=== PATIENT | female | born 1955 | race Caucasian/White ===

== ENCOUNTER 2021-04-07 10:35 | Emergency (ER) | payer MEDICARE, BC, SELFPAY ==
--- NOTE | ~2021-04-07 | XR_ITS ---
EXAMINATION: [id number] INDICATION: Right chest pain, initial encounter TECHNIQUE: A frontal view of the chest and 3 views of the right ribs were obtained. COMPARISON: None. FINDINGS: There are acute, traumatic, displaced fractures of the right fifth through eighth ribs. The re are segmental fractures of the fifth and seventh ribs. The lungs are free of acute opacities. Ther e is no pleural effusion or pneumothorax. The cardiomediastinal silhouette is normal. IMPRESSION: 1. Acute fractures of the right fifth through eighth ribs with segmental fractures of the fifth and s eventh ribs. Reviewed, dictated and finalized at location A. IMPRESSION: 1. Acute fractures of the right fifth through eighth ribs with segmental fractu res of the fifth and seventh ribs.
[2021-04-07 10:45] VITALS: BP 172/82; PULSE 83; RESP 24; TEMP 36.8; O2SAT 95
--- NOTE | 2021-04-07 11:31 | ED.CHESTPAIN ---
HPI - Chest Pain General Chief Complaint: Chest Pain Stated Complaint: injured ribs Source: patient and RN notes reviewed Limitations: no limitations History of Present Illness HPI narrative: The vaccinated patient, who is a smoker, presents with right rib pain. Patient states she slipped and fell from a standing position striking her right ribs on home furnishings a couple days ago. She complains of mild to moderate pain that is worse with breathing or movement, better with rest or tramadol. Patient states she has had previous pneumothorax and hospital admission for pneumonia; she also reports she had steroids years ago for her COPD. No fever, sputum changes, increased cough, left/precordial chest pains, bleeding, increase SOB. Screening chest x-ray remarkable for multiple rib fractures; patient advised to use her updraft, previous inspiratory spirometer . Told she will be given pain meds and antibiotics; also advised to see PMD and go to hospital if not improved Related Data Home Medications Medication Instructions Recorded Confirmed albuterol sulfate 2.5 mg CONTINUOUS NEBULIZATION PRN 04/07/21 04/07/21 PRN losartan 100 mg PO DAILY 04/07/21 04/07/21 paroxetine HCl 20 mg PO DAILY 04/07/21 04/07/21 Allergies Allergy/AdvReac Type Severity Reaction Status Date / Time No Known Allergies Allergy Verified 04/07/21 10:44 Review of Systems Review of Systems: General/Constitutional: No weight loss,fever Eyes: N0: Redness,discharge Ears/Nose/Throat: No: Epistaxis,ear discharge Respiratory: Denies: Hemoptysis Gastrointestinal: No Vomiting, Bleeding-rectal Skin: No Lumps, eruption Neurologic: No Focal Weakness,Sz Hematologic: Denies: Petechiae/Purpura Psychiatric: No: Suicida ideationl All Other Systems: Reviewed and Negative [facility] Comments At time of signature, agree with nursing past medical, surgical, social and family history. There is no relevant family history pertinent to the presenting complaint Exam Narrative: General Appearance: Lean/thin almost frail; no distress EYE: PERRLA, Conjunctiva clear Ears: External ear normal Nose: Normal nose Mouth/Throat: Normal appearing, Normal lips: Supple Skin: Warm, Dry; tender right, anterior-lateral ribs T5-9 Respiratory: Airway patent, No respiratory distress, increased AP diameter, decreased BS, rare wheezing GI: Nontender liver, soft Abdomen: Soft, Non-tender, No massess, Musculoskeletal: Full ROM Neurological: A&O x3, CN II-X intact Psychiatric: Normal mood, Normal affect Course Course Emergency Course: Films visualized, interpreted by radiologist, agree, ABnormal see report Vital Signs Vital signs: Vital Signs Temperature 98.3 F 04/07/21 10:45 Pulse Rate 83 04/07/21 10:45 Respiratory Rate 24 H 04/07/21 10:45 Blood Pressure 172/82 H 04/07/21 10:45 Pulse Oximetry 95 04/07/21 10:45 Temperature 98.3 F 04/07/21 10:45 Pulse Rate 83 04/07/21 10:45 Respiratory Rate 24 H 04/07/21 10:45 Blood Pressure 172/82 H 04/07/21 10:45 Pulse Oximetry 95 04/07/21 10:45 Discharge Plan Discharge Clinical Impression: Fracture, rib Qualifiers: Encounter type: initial encounter Rib fracture type: multiple ribs Fracture type: closed Laterality: right Qualified Code(s): S22.41XA - Multiple fractures of ribs, right side, initial encounter for closed fracture Patient Disposition: Home, Self-Care Condition: Stable Instructions: Rib Fracture (ED) Prescriptions: New acetaminophen-codeine 300-30 mg tablet 1 - 1.5 tablet PO HS PRN (Reason: pain) Qty: 20 RF: 0 tramadol 50 mg tablet 50 - 75 mg PO Q6H PRN (Reason: pain) Qty: 30 RF: 0 azithromycin 250 mg tablet See Rx Instructions .ROUTE .COMPLEX Qty: 6 RF: 0 prednisone 20 mg tablet 40 mg PO DAILY 3 Days Qty: 6 RF: 0 No Action albuterol sulfate 2.5 mg /3 mL (0.083 %) Solution For Nebulization 2.5 mg continuous nebulization PRN PRN (Reason: S
== END 2021-04-07 12:00 | disposition home or self-care (01) ==
PROVIDERS: Emergency Provider Emergency Medicine
DX: S22.41XA Multiple fractures of ribs, right side, initial encounter for closed fracture (principal); W01.0XXA Fall on same level from slipping, tripping and stumbling without subsequent striking against object, initial encounter; I10 Essential (primary) hypertension; J44.9 Chronic obstructive pulmonary disease, unspecified; I34.1 Nonrheumatic mitral (valve) prolapse; J45.909 Unspecified asthma, uncomplicated; F41.9 Anxiety disorder, unspecified
CPT/HCPCS: 71101; 99213; G0463

== ENCOUNTER 2021-04-10 15:09 | Inpatient (IN) | payer MEDICARE, BC, SELFPAY ==
[2021-04-10] VITALS (12 sets, daily range): BP systolic 116–151; BP diastolic 72–82; PULSE 77–91; RESP 15–20; TEMP 36.4–37.3; O2SAT 86–95; BMI 17.9
--- NOTE | ~2021-04-10 | XR_ITS ---
XR chest 2V 04/12/2021 10:13 Indication: Elevated white blood cell count. Right rib fracture. Procedure: PA and lateral views of the chest Comparison: 04/10/2021 Findings: Patchy left-sided airspace disease, compatible with pneumonia. Small right pleural effusion /hemothorax. There are right fifth-seventh rib fractures. No pneumothorax. No acute osseous abnormali ty. Heart size normal. Impression: 1: Patchy left-sided airspace disease, compatible with pneumonia. 2: Right fifth-seventh rib fractures with small right pleural effusion/hemothorax. Reviewed, dictated and finalized at location A. Impression: 1: Patchy left-sided airspace disease, compatible with pneumonia. 2: Right fifth-seventh rib fractures with small right pleural effusion/hemothor ax.
--- NOTE | ~2021-04-10 | XR_ITS ---
EXAMINATION: XR chest 2V DATE: 04/10/2021 15:39 INDICATION: Right anterior chest pain. TECHNIQUE: Frontal and lateral views of the chest were obtained. COMPARISON: Chest radiograph 04/07/2021 FINDINGS: Again seen are fractures of right fifth-seventh ribs. There are mild airspace opacities in the mid and lower lung zones with a peripheral predominance. There is mild scarring at the lung apice s. There is a small right pleural effusion. No pneumothorax. Cardiomegaly is noted. IMPRESSION: 1. Worsened mild airspace opacities in the mid and lower lung zones, consistent with atelectasis vers us pneumonia. 2. Small right pleural effusion. 3. Cardiomegaly. 4. Acute fractures of right fifth-seventh ribs again seen. Reviewed, dictated and finalized at location B. IMPRESSION: 1. Worsened mild airspace opacities in the mid and lower lung zones, consistent with atelectasis versus pneumonia. 2. Small right pleural effusion. 3. Cardiomegaly. 4. Acute fractures of right fifth-seventh ribs again seen.
--- NOTE | ~2021-04-10 | CT_ITS ---
EXAMINATION: CTA chest PE protocol DATE: 04/10/2021 16:31 INDICATION: Hemoptysis. Anterior right-sided chest pain. TECHNIQUE: Computed tomography (CT) pulmonary angiogram of the chest was performed with 100 mL Omnipa que-350 intravenous contrast. Additional 3D reconstructions utilizing coronal maximum intensity proje ction (MIP) were performed. Automated exposure control and iterative reconstruction technique were em ployed. The dose-length product was 184.11 mGy-cm. COMPARISON: None FINDINGS: Good contrast opacification of the pulmonary arteries. There is moderate streak artifact from dense c ontrast in the superior vena cava and right atrium. Mild to moderate scattered respiratory motion art ifact which decreases sensitivity in many of the smaller subsegmental pulmonary arteries. No definite pulmonary embolism. Small posteriorly layering right pleural effusion with compressive atelectasis i n the dependent right lower lobe. There are focal regions of groundglass opacity in the anterior righ t upper lobe and scattered regions of the left upper lobe and lingula. There appears to be some mucou s plugging in the left upper and bilateral lower lobes. Mild emphysema. No pneumothorax. Mild cardiom egaly. Mild atherosclerotic coronary artery calcification. No pericardial effusion. Thoracic aorta is normal in caliber with no dissection. No pathologically enlarged thoracic lymphadenopathy. Visualize d upper abdomen is unremarkable. Severe spondylosis in the lower cervical and upper thoracic spine. C hronic mild anterior wedging at T12 and L1. Acute mildly displaced fractures of the posterolateral ri ght fifth-seventh ribs. Callus formation about an older anterior right fifth rib fracture. IMPRESSION: 1. No evident pulmonary embolism with sensitivity mildly decreased in the smaller subsegmental pulmon [place] arteries to primarily to respiratory motion artifact. 2. Mildly displaced posterolateral right fifth-seventh rib fractures with small right pleural effusio n but no pneumothorax. 3. Scattered mucous plugging as well as regions of groundglass opacity in the bilateral upper lobes a nd lingula most suspicious for pneumonia, including COVID pneumonia. Differential includes less likel y pulmonary edema or atelectasis. 4. Mild emphysema. 5. Cardiomegaly. Reviewed, dictated and finalized at location A. IMPRESSION: 1. No evident pulmonary embolism with sensitivity mildly decreased in the small er subsegmental pulmonary arteries to primarily to respiratory motion artifact. 2. Mildly displaced posterolateral right fifth-seventh rib fractures with small right pleural effusion but no pneumothorax. 3. Scattered mucous plugging as well as regions of groundglass opacity in the b ilateral upper lobes and lingula most suspicious for pneumonia, including COVID pneumonia. Differential includes less likely pulmonary edema or atelectasis. 4. Mild emphysema. 5. Cardiomegaly.
--- NOTE | 2021-04-10 15:15 | ECG_ITS ---
Measurements Intervals [place] Rate: 75 P: 39 WA: 166 QRS: 71 QRSD: 96 T: 38 QT: 390 QTc: 437 Interpretive Statements SINUS RHYTHM EARLY PRECORDIAL R/S TRANSITION, CONSIDER RIGHT VENTRICULAR HYPERTROPHY BORDERLINE T WAVE ABNORMALITY- ANTERIOR LEADS BORDERLINE ECG Electronically Signed On 04-10-2021 15:18:48 CDT by Michael Gibbs D.O.
[2021-04-10 15:41] LABS: Basophils Absolute Auto 0.1 K/mm3 (0.0-0.1); Basophils Percent Auto 0.4 % (0.2-1.2); Eosinophils Percent Auto 0.2 % (0-4.4); Hematocrit 41.3 % (37.0-47.0); Hemoglobin 13.3 g/dL (12.0-15.0); Immature Granulocyte Absolute 0.11 K/mm3 (0.00-0.031); Immature Granulocyte Percent A 0.9 % (0-0.5); Lymphocytes Absolute Auto 2.75 K/mm3 (0.9-3.2); Lymphocytes Percent Auto 21.8 % (18.3-44.2); Mean Corpuscular HGB Conc 32.2 g/dl (32-36); Mean Corpuscular Hemoglobin 33.4 pg (26-34); Mean Corpuscular Volume 103.8 fl (80-100); Mean Platelet Volume 9.5 fl (7.4-10.4); Monocytes Absolute Auto 1.1 K/mm3 (0.1-0.6); Monocytes Percent Auto 8.8 % (2.6-8.5); Neutrophils Absolute Auto 8.6 K/mm3 (1.3-6.7); Neutrophils Percent Auto 67.9 % (45.5-73.1); Platelet Count Result 259 k/mm3 (150-375); Red Blood Count 3.98 M/mm3 (4.2-5.4); Red Cell Distribution Width 13.9 % (11.5-14.5); White Blood Count 12.6 K/mm3 (4.5-10.0)
--- NOTE | 2021-04-10 15:43 | ED.SOB ---
HPI - SOB/Dyspnea General Chief Complaint: Shortness of Breath/Dyspnea Stated Complaint: DIFFICULTY BREATHING Time Seen by Provider: 04/10/21 15:19 Source: patient and RN notes reviewed Mode of arrival: ambulatory History of Present Illness HPI Narrative: This is a 66 year old female who presents for evaluation of shortness of breath and rib fracture. Patient slipped 4-5 days ago and she hit her right side on a dresser. She was having rib pain and difficulty take a breath so she went to [facility] 3 days ago. She states she was diagnosed with multiple rib fractures and pneumonia. She was discharged with antibiotics, prednisone and tramadol. She continues to have worsening shortness of breath and difficulty taking a breath. She also reports some hemoptysis and lightheadedness. She denies fever or chills. She has not taken her tramadol since last night. PAtient was found to have oxygen saturation 86% on room air on arrival so she was placed on oxygen by nasal cannula. Related Data Home Medications Medication Instructions Recorded Confirmed albuterol sulfate 2.5 mg CONTINUOUS NEBULIZATION PRN 04/07/21 04/10/21 PRN losartan 100 mg PO DAILY 04/07/21 04/10/21 paroxetine HCl 20 mg PO DAILY 04/07/21 04/10/21 tramadol 50 mg PO Q6H PRN 04/10/21 04/10/21 Allergies Allergy/AdvReac Type Severity Reaction Status Date / Time No Known Allergies Allergy Verified 04/10/21 15:17 Review of Systems Review of Systems: All systems reviewed & are unremarkable except as noted in HPI and below PMFSH Past Medical History Medical History (Updated 04/11/21 @ 23:49 by Linnette Christian MD) Pneumonia Family History Family History (Updated 04/10/21 @ 23:14 by Zoraida Torres RN) Mother Dementia Father Congestive heart failure Sibling Acute myocardial infarction Sibling Acute myocardial infarction Sibling Bone cancer Sibling Congestive heart failure Social History Social History (Updated 04/10/21 @ 15:53 by Linnette Christian MD) Smoking packs per day: 0.5 Smoking cigarettes per day: 10.0 Smoking status: Current every day smoker Additional smoking assessment comments: has quit before, off and on smoker Alcohol intake: current Drinks per week: 7 Substance use: never Spiritual care concerns: No Exam Const: General: alert Nutritional Appearance: thin Orientation/consciousness: patient oriented x3 Eyes: EOM: EOMs intact bilaterally Chest: Chest palpation & inspection: tenderness rib Resp: Effort & Inspection: normal respiratory effort and no retractions Auscultation: clear to auscultation bilaterally Cardio: Rate: regular rate Rhythm: regular rhythm Heart sounds: no murmurs GI: GI Palp: Yes Soft to palpation, No Tenderness to palpation present (GI) and No Guarding due to palpation present (GI) Auscultation: normal bowel sounds Neuro: General: patient oriented x3, moves all extremities and CN's II-XI intact bilaterally Psych: Mental Status: mental status grossly normal Affect: normal affect Course Reevaluation(s) Reevaluation #1: I Discussed with patient that she will need to be admitted since she needs to oxygen. Date: 04/10/21 Time: 17:30 Consultations Consultation #1: I Discussed case with Dr. Singh who accepts patient to medical floor for rib fractures and pneumonia Date: 04/10/21 Time: 17:26 Vital Signs Vital signs: Vital Signs Temperature 99.2 F 04/10/21 15:21 Pulse Rate 77 04/10/21 15:21 Respiratory Rate 18 04/10/21 15:21 Blood Pressure 136/78 04/10/21 15:21 Pulse Oximetry 86 L 04/10/21 15:21 Temperature 97.6 F 04/11/21 21:18 Pulse Rate 88 04/11/21 21:55 Respiratory Rate 20 04/11/21 21:55 Blood Pressure 134/71 04/11/21 21:18 Pulse Oximetry 96 04/11/21 21:56 MDM - SOB/Dyspnea Lab Data Attestation: I reviewed the patient's lab results. Result diagrams: 04/11/21 06:23 04/11/21 06:23
[2021-04-10 15:53] LABS: Anion Gap 13 mmol/L (8-16); Blood Urea Nitrogen 8 mg/dL (7-17); Calcium 9.2 mg/dL (8.4-10.2); Carbon Dioxide 23 mmol/L (22-30); Chloride 103 mmol/L (98-107); Estimated CRCL calculation 59 ml/min; Estimated Glomerular Filt Rate > 60; Glucose 98 mg/dL (65-110); Potassium 3.3 mmol/L (3.4-5.0); Sodium 139 mmol/L (137-145)
[2021-04-10 16:16] LABS: Alveolar/Arterial O2 Gradient 150.7 mmHg; Base Excess ABG 1.1 mEq/l (+/-2.0); Carboxyhemoglobin 1.3 % THb (0-2.0); Fractional Inspired Oxygen 36 %; HCO3 ABG 24.4 mEq/l (22.0-26.0); Methemoglobin ABG 0.3 %THb (0-1.5); Oxygen Content ABG 18.1 %vol (16.0-22.0); Oxygen Saturation ABG 94.1 % (95.0-100.0); Oxyhemoglobin 90.9 % THb (90.0-100.0); PCO2 ABG 34.9 mmHg (35.0-45.0); PO2 ABG 65.5 mmHg (80.0-100.0); PO2 FiO2 Ratio Arterial Blood 1.82 %; Reduced Hemoglobin 7.5 %THb (0-5.0); Total Hemoglobin 14.2 g/dL (12.0-18.0); pH ABG 7.463 (7.350-7.450)
[2021-04-10 16:17] LABS: Device NASAL CANNULA; Modified Allen's Test Pass; Site Drawn LEFT RADIAL
[2021-04-10] MEDS: ONDANSETRON INJ 4 MG/2 ML VIAL IV PUSH (17:28)
[2021-04-10] MEDS: MORPHINE SULFATE (*CRX) 4 MG/ML INJ IV PUSH (17:29)
[2021-04-10 18:16] LABS: EDCOVIDSCREEN Negative (Negative)
--- NOTE | 2021-04-10 19:15 | PC.NURSE ---
Report given to JIM Banerjee
--- NOTE | 2021-04-10 20:20 | PC.NURSE ---
Attempted to call report on pt, RN unable to receive report at this time. Will give ED a call back.
--- NOTE | 2021-04-10 21:21 | PC.NURSE ---
This patient, Martha Martinez, was admitted to 3 Med Surg Room 301-01 @20:45. Report taken from Summer in ED. Patient/family oriented to hospital policies and general routines including ID bracelet, bed and alarms, visiting hours, pain management, procedures, bathroom and other care routines, personal items, smoking policy, room service/diet, and visiting hours. Information on how to activate the Rapid Response Team has been discussed. Patient/Family are encouraged to report perceived risks to care and to ask questions if they do not understand what they are told or what they should do.
[2021-04-10] MEDS: HYDROcodone/acetaminophen (*CRX) 5-325 MG TABLET 2 TAB PO (21:55)
--- NOTE | 2021-04-10 22:28 | PM.IMHP ---
H&P: HPI History of Present Illness Date/Time: 04/10/21 22:28 Chief Complaint: chest pain shortness of breath Narrative: This is a 66 year old female who presents for evaluation of shortness of breath and rib fracture. Patient slipped 4-5 days ago and she hit her right side on a dresser. She was having rib pain and difficulty to take a breath so she went to [facility] 3 days ago. She states she was diagnosed with multiple rib fractures and pneumonia. She was discharged with antibiotics, prednisone and tramadol. She continues to have worsening shortness of breath and difficulty taking a breath. She also reports some hemoptysis and lightheadedness. She denies fever or chills. She has not taken her tramadol since last night. PAtient was found to have oxygen saturation 86% on room air on arrival so she was placed on oxygen by nasal cannula. she just moved from [place] to reschedule in this area after her 's . Chest x-ray today showed worsen light mild airspace opacities in the mid and lower lung zones consistent with atelectasis versus pneumonia. All right-sided pleural effusion cardiomegaly and acute fracture of the right 5th to 7th ribs seen. CTA showed no PE with mildly displaced posterior lateral right 5th to 7th rib fracture with small right pleural effusion with no pneumothorax. Scattered mucous plugging as well as regions of ground-glass opacity in the bilateral upper lobes and lingula most suspicious for pneumonia including COVID pneumonia mild emphysema and cardiomegaly seen too. She is admitted for further evaluation and management Review of Systems Review of Systems: - CONSTITUTIONAL: Denies weight loss, fever and chills. - HEENT: Denies changes in vision and hearing - RESPIRATORY: reports SOB and cough. - CV: Denies palpitations and reports CP. - GI: Denies abdominal pain, nausea, vomiting and diarrhea. - : Denies dysuria and urinary frequency. - MSK: Denies myalgia and joint pain. - SKIN: Denies rash and pruritus. - NEUROLOGICAL: Denies headache and syncope. - PSYCHIATRIC: Denies recent changes in mood. Denies anxiety and depression. All systems reviewed & are unremarkable except as noted in HPI and below Constitutional: Constitutional: Reports fatigue and Reports weakness Neurologic: Reports weakness Endocrine: Endocrine: Reports fatigue [facility] Past Medical History Medical History (Updated 04/10/21 @ 22:44 by Yasmany Gonzalez MD) Pneumonia Social History Social History (Updated 04/10/21 @ 15:53 by Linnette Christian MD) Smoking status: Current every day smoker Meds Home Medications and Allergies Home Medications Medication Instructions Recorded Confirmed Type acetaminophen-codeine 1 - 1.5 tablet PO HS PRN #20 tablet 04/07/21 Rx albuterol sulfate 2.5 mg CONTINUOUS NEBULIZATION PRN 04/07/21 04/07/21 History PRN azithromycin See Rx Instructions .ROUTE 04/07/21 Rx .COMPLEX #6 tablet losartan 100 mg PO DAILY 04/07/21 04/07/21 History paroxetine HCl 20 mg PO DAILY 04/07/21 04/07/21 History prednisone 40 mg PO DAILY 3 Days #6 tablet 04/07/21 Rx tramadol 50 - 75 mg PO Q6H PRN #30 tablet 04/07/21 Rx Allergies Allergy/AdvReac Type Severity Reaction Status Date / Time No Known Allergies Allergy Verified 04/10/21 15:17 Vital Signs Vital Signs - 24 hr 04/10/21 15:21 04/10/21 15:24 04/10/21 15:27 Temperature 99.2 F Pulse Rate 77 83 Respiratory Rate 18 15 Blood Pressure 136/78 133/76 Pulse Oximetry 86 L 93 93 04/10/21 16:30 04/10/21 17:15 04/10/21 17:45 Temperature Pulse Rate 80 87 85 Respiratory Rate 20 18 18 Blood Pressure 151/78 H 144/74 H 126/78 Pulse Oximetry 95 93 92 04/10/21 18:30 04/10/21 19:45 04/10/21 20:00 Temperature Pulse Rate 82 91 83 Respiratory Rate 18 19 20 Blood Pressure 129/72 116/80 137/77 Pulse Oximetry 93 93 93 04/10/21 20:16 04/10/21 21:26 Temperature 98.0 F Pulse Rate 79
[2021-04-10] MEDS: methylPREDNISolone SOD SUCC 40 MG VIAL IV PUSH (23:49)
[2021-04-10] MEDS: guaiFENesin 12 HR 600 MG TABCR 1200 MG PO (23:49)
[2021-04-11] VITALS (15 sets, daily range): BP systolic 127–140; BP diastolic 65–73; PULSE 67–88; RESP 14–20; TEMP 36.1–37.4; O2SAT 92–97; BMI 17.9
[2021-04-11] MEDS: MORPHINE SULFATE (*CRX) 2 MG/ML INJ IV PUSH (00:05)
[2021-04-11 07:16] LABS: Hematocrit 38.2 % (37.0-47.0); Hemoglobin 12.5 g/dL (12.0-15.0); Mean Corpuscular HGB Conc 32.7 g/dl (32-36); Mean Corpuscular Hemoglobin 34.1 pg (26-34); Mean Corpuscular Volume 104.1 fl (80-100); Mean Platelet Volume 9.9 fl (7.4-10.4); Platelet Count Result 213 k/mm3 (150-375); Red Blood Count 3.67 M/mm3 (4.2-5.4); Red Cell Distribution Width 13.3 % (11.5-14.5); White Blood Count 15.9 K/mm3 (4.5-10.0)
[2021-04-11 07:31] LABS: Alanine Aminotransferase 39 U/L (4-35); Albumin Level 3.9 g/dL (3.5-5.1); Alkaline Phosphatase 115 U/L (38-126); Anion Gap 7 mmol/L (8-16); Aspartate Amino Transferase 40 U/L (14-36); Bilirubin,Total 1.6 mg/dL (0.2-1.3); Blood Urea Nitrogen 12 mg/dL (7-17); Calcium 8.9 mg/dL (8.4-10.2); Carbon Dioxide 28 mmol/L (22-30); Chloride 93 mmol/L (98-107); Estimated CRCL calculation 59 ml/min; Estimated Glomerular Filt Rate > 60; Glucose 137 mg/dL (65-110); Sodium 128 mmol/L (137-145)
[2021-04-11] MEDS: ALBUTEROL SULFATE NEB 2.5 MG/0.5 ML INH INHALATION ×4 (07:34→21:52)
[2021-04-11] MEDS: IPRATROPIUM BR 0.02% INH SOLN 0.5 MG/2.5 ML VIAL INHALATION ×4 (07:35→21:52)
[2021-04-11] MEDS: DORNASE ALFA INH SOLN 1 MG/ML 2.5 ML AMP 2.5 MG INHALATION ×2 (07:35→21:52)
[2021-04-11 09:02] LABS: Band Neutrophils Percent 8 % (0-6); Lymphocytes Absolute Manual 0.47 K/mm3 (1.1-4.5); Monocytes Absolute Manual 0.47 K/mm3 (0.1-0.90); Monocytes Percent Manual 3 % (3-9); Neutrophils Absolute Manual 14.94 K/mm3 (1.7-7.2); Neutrophils Percent Manual 86 % (46-73); Total Cells Counted 100
[2021-04-11 09:03] LABS: Platelet Estimate Adequate (Adequate)
[2021-04-11] MEDS: HYDROcodone/acetaminophen (*CRX) 5-325 MG TABLET 2 TAB PO ×2 (09:36→21:31)
[2021-04-11] MEDS: guaiFENesin 12 HR 600 MG TABCR 1200 MG PO ×2 (09:36→21:32)
[2021-04-11] MEDS: methylPREDNISolone SOD SUCC 40 MG VIAL IV PUSH ×2 (09:37→17:30)
[2021-04-11] MEDS: PARoxetine 20 MG TABLET PO (09:58)
[2021-04-11] MEDS: LOSARTAN POTASSIUM 100 MG TABLET PO (09:58)
[2021-04-11 14:01] LABS: Glucose Point of Care 201 mg/dl (65-105)
[2021-04-11] MEDS: ALPRAZolam (*CRX) 0.25 MG TABLET PO ×2 (15:18→23:51)
--- NOTE | 2021-04-11 16:46 | PM.IMPN ---
Progress Note: A&P Assessment and Plan (1) Ribs, multiple fractures: Code(s): S22.49XA - Multiple fractures of ribs, unspecified side, initial encounter for closed fracture Status: Acute (2) Pneumonia: Code(s): J18.9 - Pneumonia, unspecified organism Status: Acute (3) Hypoxia: Code(s): R09.02 - Hypoxemia Status: Acute (4) Asthma exacerbation: Code(s): J45.901 - Unspecified asthma with (acute) exacerbation Status: Acute (5) Tobacco abuse: Code(s): Z72.0 - Tobacco use Status: Acute (6) Fall: Code(s): W19.XXXA - Unspecified fall, initial encounter Status: Acute (7) Hemoptysis: Code(s): R04.2 - Hemoptysis Status: Acute Additional Plan # right-sided 5th to 7th rib fracture traumatic with mild displacement likely from fall However she does report rib fractures with aggressive coughing in the past. continue incentive spirometry # Bilateral pneumonia with scattered mucous plugging. IV antibiotics with ceftriaxone and azithromycin. COVID swabRapid test was negative will send for PCR. Continue EZ Pap. Mucinex. Pulmozyme # Asthma/COPD exacerbation will do steroid IV continue continue inhaler # fall mechanical 04/07/2021 # Heomoptyiss; mild will mointor. # hypertension # Anxiety depression # DVT prophylaxis SCDs due to mild hemoptysis # Full code 04/11/21 16:46 Patient is 66-year-old female status post fall 3-4 days ago and fracture of the 5th, 6th and 7th ribs patient continue to pain and shortness of breath, presented emergency department further evaluation patient is found to have pneumonia being treated with Rocephin azithromycin, is also concern the patient for COVID-19 being tested an isolated, patient recently see moved from [place] to the area per nursing staff patient is depressed and crying on and off, will start the patient on BuSpar 5 mg b.i.d. and Xanax 0.25 mg p.r.n., continue to monitor further recommendation to follow, will have PT OT evaluate the patient Subjective Date/time seen: 04/11/21 16:46 Patient is 66-year-old female status post fall 3-4 days ago and fracture of the 5th, 6th and 7th ribs patient continue to pain and shortness of breath, presented emergency department further evaluation patient is found to have pneumonia being treated with Rocephin azithromycin, is also concern the patient for COVID-19 being tested an isolated, patient recently see moved from [place] to the area per nursing staff patient is depressed and crying on and off, will start the patient on BuSpar 5 mg b.i.d. and Xanax 0.25 mg p.r.n., continue to monitor further recommendation to follow, will have PT OT evaluate the patient Review of Systems Review of Systems: All systems reviewed & are unremarkable except as noted in HPI and below Constitutional: Constitutional: Reports fatigue and Reports weakness Neurologic: Reports weakness Endocrine: Endocrine: Reports fatigue Exam Narrative: Patient is comfortable, NAD HEENT: eyes are clear and none icteric LUNGS: bilateral fair air entry with rhonchi HEART: RR S1S2 ABD: BS+, Soft and nontender Lower extremities: no edema SKIN: nonjaundiced Neuro: grossly intact. Objective Data Vital Signs Vital Signs: Vital Signs - 24 hr 04/10/21 17:15 04/10/21 17:45 04/10/21 18:30 Temperature Pulse Rate 87 85 82 Respiratory Rate 18 18 18 Blood Pressure 144/74 H 126/78 129/72 Pulse Oximetry 93 92 93 04/10/21 19:45 04/10/21 20:00 04/10/21 20:16 Temperature Pulse Rate 91 83 79 Respiratory Rate 19 20 19 Blood Pressure 116/80 137/77 127/74 Pulse Oximetry 93 93 93 04/10/21 21:26 04/10/21 23:06 04/11/21 02:03 Temperature 98.0 F 97.5 F L Pulse Rate 79 87 Respiratory Rate 18 18 Blood Pressure 146/82 H 142/75 H Pulse Oximetry 94 93 95 04/11/21 03:06 04/11/21 06:22 04/11/21 07:00 Temperature 97.0 F L 99.3 F Pulse Rate 87 84 73 Respira
[2021-04-11 17:13] LABS: SARS-CoV-2 RNA PCR Negative
[2021-04-11] MEDS: busPIRone HCL 5 MG TABLET PO (21:31)
[2021-04-11 21:38] LABS: Hemoglobin A1C 5.1 % (<5.7)
[2021-04-12] VITALS (9 sets, daily range): BP systolic 135–147; BP diastolic 65–72; PULSE 63–83; RESP 14–20; TEMP 36.4–37.1; O2SAT 92–93
[2021-04-12] MEDS: IPRATROPIUM BR 0.02% INH SOLN 0.5 MG/2.5 ML VIAL INHALATION ×3 (08:24→21:34)
[2021-04-12] MEDS: ALBUTEROL SULFATE NEB 2.5 MG/0.5 ML INH INHALATION ×3 (08:24→21:34)
[2021-04-12] MEDS: DORNASE ALFA INH SOLN 1 MG/ML 2.5 ML AMP 2.5 MG INHALATION ×2 (08:27→21:33)
[2021-04-12] MEDS: guaiFENesin 12 HR 600 MG TABCR 1200 MG PO ×2 (08:58→20:50)
[2021-04-12] MEDS: busPIRone HCL 5 MG TABLET PO ×2 (08:59→20:50)
[2021-04-12] MEDS: PARoxetine 20 MG TABLET PO (08:59)
[2021-04-12] MEDS: LOSARTAN POTASSIUM 100 MG TABLET PO (08:59)
[2021-04-12] MEDS: methylPREDNISolone SOD SUCC 40 MG VIAL IV PUSH ×2 (08:59→17:37)
[2021-04-12] MEDS: HYDROcodone/acetaminophen (*CRX) 5-325 MG TABLET 1 TAB PO ×3 (09:09→20:47)
[2021-04-12] MEDS: ALPRAZolam (*CRX) 0.25 MG TABLET PO ×2 (10:43→20:47)
--- NOTE | 2021-04-12 14:01 | PM.IMPN ---
Progress Note: A&P Assessment and Plan (1) Ribs, multiple fractures: Code(s): S22.49XA - Multiple fractures of ribs, unspecified side, initial encounter for closed fracture Status: Acute (2) Pneumonia: Code(s): J18.9 - Pneumonia, unspecified organism Status: Acute (3) Hypoxia: Code(s): R09.02 - Hypoxemia Status: Acute (4) Asthma exacerbation: Code(s): J45.901 - Unspecified asthma with (acute) exacerbation Status: Acute (5) Tobacco abuse: Code(s): Z72.0 - Tobacco use Status: Acute (6) Fall: Code(s): W19.XXXA - Unspecified fall, initial encounter Status: Acute (7) Hemoptysis: Code(s): R04.2 - Hemoptysis Status: Acute Additional Plan # right-sided 5th to 7th rib fracture traumatic with mild displacement likely from fall However she does report rib fractures with aggressive coughing in the past. continue incentive spirometry # Bilateral pneumonia with scattered mucous plugging. IV antibiotics with ceftriaxone and azithromycin. COVID swabRapid test was negative will send for PCR. Continue EZ Pap. Mucinex. Pulmozyme # Asthma/COPD exacerbation will do steroid IV continue continue inhaler # fall mechanical 04/07/2021 # Heomoptyiss; mild will mointor. # hypertension # Anxiety depression # DVT prophylaxis SCDs due to mild hemoptysis # Full code 04/12/21 14:01 04/11 Patient is 66-year-old female status post fall 3-4 days ago and fracture of the 5th, 6th and 7th ribs patient continue to pain and shortness of breath, presented emergency department further evaluation patient is found to have pneumonia being treated with Rocephin azithromycin, is also concern the patient for COVID-19 being tested an isolated, patient recently see moved from [place] to the area per nursing staff patient is depressed and crying on and off, will start the patient on BuSpar 5 mg b.i.d. and Xanax 0.25 mg p.r.n., continue to monitor further recommendation to follow, will have PT OT evaluate the patient. 04/12 patient remains clinically stable however does complain of right-sided rib pain, repeat chest x-ray showed persistent treat concerning for pneumonia patient being treated with Rocephin and azithromycin will continue and repeat x-ray on Thursday and further recommendation to follow, patient still remains quite emotional, will continue BuSpar 5 mg b.i.d. and Xanax 0.25 p.o. q.8 p.r.n., will continue to monitor have PT OT evaluate the patient. Subjective Date/time seen: 04/12/21 14:01 04/11 Patient is 66-year-old female status post fall 3-4 days ago and fracture of the 5th, 6th and 7th ribs patient continue to pain and shortness of breath, presented emergency department further evaluation patient is found to have pneumonia being treated with Rocephin azithromycin, is also concern the patient for COVID-19 being tested an isolated, patient recently see moved from [place] to the area per nursing staff patient is depressed and crying on and off, will start the patient on BuSpar 5 mg b.i.d. and Xanax 0.25 mg p.r.n., continue to monitor further recommendation to follow, will have PT OT evaluate the patient. 04/12 patient remains clinically stable however does complain of right-sided rib pain, repeat chest x-ray showed persistent treat concerning for pneumonia patient being treated with Rocephin and azithromycin will continue and repeat x-ray on Thursday and further recommendation to follow, patient still remains quite emotional, will continue BuSpar 5 mg b.i.d. and Xanax 0.25 p.o. q.8 p.r.n., will continue to monitor have PT OT evaluate the patient. Review of Systems Review of Systems: All systems reviewed & are unremarkable except as noted in HPI and below Exam Narrative: Patient is comfortable, NAD HEENT: eyes are clear and none icteric LUNGS: bilateral fair air entry with rhonchi HEART: RR S1S2 ABD: BS+, Soft and nontender Lower extr
[2021-04-13 06:00] VITALS: BP 142/78; PULSE 64; RESP 20; TEMP 36.4; O2SAT 93
[2021-04-13 06:55] LABS: Hematocrit 37.6 % (37.0-47.0); Hemoglobin 12.2 g/dL (12.0-15.0); Mean Corpuscular HGB Conc 32.4 g/dl (32-36); Mean Corpuscular Hemoglobin 33.7 pg (26-34); Mean Corpuscular Volume 103.9 fl (80-100); Mean Platelet Volume 10.3 fl (7.4-10.4); Platelet Count Result 221 k/mm3 (150-375); Red Blood Count 3.62 M/mm3 (4.2-5.4); Red Cell Distribution Width 13.1 % (11.5-14.5); White Blood Count 15.3 K/mm3 (4.5-10.0)
[2021-04-13 07:07] LABS: Anion Gap 9 mmol/L (8-16); Blood Urea Nitrogen 18 mg/dL (7-17); Calcium 9.6 mg/dL (8.4-10.2); Carbon Dioxide 25 mmol/L (22-30); Chloride 99 mmol/L (98-107); Estimated CRCL calculation 59 ml/min; Estimated Glomerular Filt Rate > 60; Glucose 103 mg/dL (65-110); Potassium 3.8 mmol/L (3.4-5.0); Sodium 133 mmol/L (137-145)
[2021-04-13 08:00] VITALS: PULSE 76; RESP 16; O2SAT 94
[2021-04-13 08:01] VITALS: PULSE 70; RESP 16; O2SAT 94
[2021-04-13] MEDS: IPRATROPIUM BR 0.02% INH SOLN 0.5 MG/2.5 ML VIAL INHALATION ×2 (08:01→11:48)
[2021-04-13] MEDS: ALBUTEROL SULFATE NEB 2.5 MG/0.5 ML INH INHALATION ×2 (08:01→11:48)
[2021-04-13] MEDS: DORNASE ALFA INH SOLN 1 MG/ML 2.5 ML AMP 2.5 MG INHALATION (08:01)
[2021-04-13 08:18] VITALS: PULSE 76; RESP 16
[2021-04-13] MEDS: traMADol HCL (*CRX) 50 MG TABLET PO (09:43)
[2021-04-13] MEDS: methylPREDNISolone SOD SUCC 40 MG VIAL IV PUSH (09:43)
[2021-04-13] MEDS: guaiFENesin 12 HR 600 MG TABCR 1200 MG PO (09:44)
[2021-04-13] MEDS: busPIRone HCL 5 MG TABLET PO (09:44)
[2021-04-13] MEDS: LOSARTAN POTASSIUM 100 MG TABLET PO (09:45)
[2021-04-13] MEDS: PARoxetine 20 MG TABLET PO (09:45)
--- NOTE | 2021-04-13 09:56 | PM.DS ---
DS: Admitting Diagnosis Admitting Diagnosis Rib fracture Pneumonia DS: Discharge Diagnosis Discharge Diagnosis (1) Pneumonia: Code(s): J18.9 - Pneumonia, unspecified organism Status: Acute (2) Ribs, multiple fractures: Code(s): S22.49XA - Multiple fractures of ribs, unspecified side, initial encounter for closed fracture Status: Acute DS: Summary Hospital Course Hospital Course: This is a 66-year-old woman with past medical history of hypertension, anxiety, who presented on 04/10 shortness of breath after fall 5 days prior to presentation, and have right-sided rib fractures, of the 5th through 8th with segmental fractures of the 5th and 7th ribs. She had just moved into town from [place]. On presentation she was found to have oxygen saturation is 86% on room air. She was initially placed on oxygen. COVID was tested negative. CTA of her chest confirmed bilateral pneumonia, no evidence of pulmonary embolism, and also confirmed fractures. She was initiated on ceftriaxone and azithromycin. She stabilized and was able to wean off oxygen. Incentive spirometry and other cares were continued. She was encouraged to take deep breaths as tolerated given her rib fractures. At the time discharge: She was hemodynamically stable, breathing comfortably on room air oxygen saturation of 94% and afebrile. During hospitalization, given recent of , she was noted to be emotionally labile. She was initiated on BuSpar 5 mg b.i.d., and Xanax p.r.n. Although it was recommended that she is observed for another 1-2 days, she was adamant about discharge. Her rib pain had significantly improved. She was evaluated by Physical therapy, and deemed safe for discharge to home. Discussed with her the need for close follow-up with primary care provider to ensure clinical improvement. Time Spent with Patient Time attestation: Total time spent providing and/or coordinating discharge services: 35 min Exam Narrative: Gen: Alert, NAD Abd: Soft, NT, ND Heart: RRR Lungs: CTAB Ext: No lower extremity edema DS: Data Data Completed and Pending Labs on day of discharge: Labs from last 24 hours 04/13/21 04/13/21 05:59 05:59 WBC 15.3 H RBC 3.62 L Hgb 12.2 Hct 37.6 MCV 103.9 H MCH 33.7 MCHC 32.4 RDW 13.1 Plt Count 221 MPV 10.3 Sodium 133 L Potassium 3.8 Chloride 99 Carbon Dioxide 25 Anion Gap 9 BUN 18 H Creatinine 0.60 L Estim Creat Clear Calc 59 Estimated GFR > 60 Glucose 103 Calcium 9.6 Preliminary micro results at discharge 04/10/21 17:32 Blood Culture - Preliminary Blood 04/10/21 17:21 Blood Culture - Preliminary Blood Discharge Plan Discharge Consulting providers: Edis Avelar Discharging Clinician: Eamon Turner Patient Disposition: Home, Self-Care Activity: as tolerated Diet: regular Patient Instructions: Antibiotic Form, How to Stop Smoking (GEN) Stand Alone Forms: General Discharge Information Follow-up/Referrals: Edis Avelar MD [Physician] - (In 1-2 weeks of discharge to ensure clinical improvement ) Discharge Medications: New alprazolam 0.25 mg Tablet 0.25 mg PO TID PRN (Reason: Anxiety) Qty: 20 RF: 0 buspirone 5 mg Tablet 5 mg PO Q12HR Qty: 60 RF: 0 azithromycin 250 mg tablet 250 mg PO DAILY 3 Days Qty: 3 RF: 0 Continued albuterol sulfate 2.5 mg /3 mL (0.083 %) Solution For Nebulization 2.5 mg continuous nebulization PRN PRN (Reason: Shortness Of Breath) RF: 0 paroxetine HCl 20 mg Tablet 20 mg PO DAILY RF: 0 losartan 100 mg Tablet 100 mg PO DAILY RF: 0 tramadol 50 mg tablet 50 mg PO Q6H PRN (Reason: pain) RF: 0 Date of admission: 04/10/21 17:31 Primary Care Provider: PHYSICIAN,TUB OPERATOR Admitting Provider: Nicole Lund Attending physician on admission: Eamon Turner Condition: Serious
[2021-04-13 11:48] VITALS: PULSE 72; RESP 16
[2021-04-13 11:58] VITALS: PULSE 76; RESP 16
== END 2021-04-13 14:05 | disposition home or self-care (01) | DRG 194 ==
LOC: ANHED 15:56 → ANH3MEDSUR 19:57
PROVIDERS: Emergency Medicine; Internal Medicine; Admitting Provider Family Medicine; Emergency Provider General Practice; Visit Provider Internal Medicine Nephrology
DX: J18.9 Pneumonia, unspecified organism (principal); S22.41XA Multiple fractures of ribs, right side, initial encounter for closed fracture; J45.901 Unspecified asthma with (acute) exacerbation; R04.2 Hemoptysis; J44.0 Chronic obstructive pulmonary disease with (acute) lower respiratory infection; J44.1 Chronic obstructive pulmonary disease with (acute) exacerbation; W19.XXXA Unspecified fall, initial encounter; Z20.822 Contact with and (suspected) exposure to COVID-19; R09.02 Hypoxemia; I10 Essential (primary) hypertension; F17.210 Nicotine dependence, cigarettes, uncomplicated; F41.9 Anxiety disorder, unspecified; F32.9 Major depressive disorder, single episode, unspecified; R45.86 Emotional lability; Z63.4 Disappearance and death of family member; Z79.899 Other long term (current) drug therapy
CPT/HCPCS: 36415; 36600; 71046; 71101; 71275; 80048; 80053; 82375; 82805; 82948; 83036; 83050; 85025; 85027; 87040; 87426; 93005; 94640; 96374; 96375; 97161; 99213; 99285; A9270; C9803; G0463; J0456; J0696; J2270; J2405; J2920; Q9967; U0003; U0005

== ENCOUNTER 2021-06-26 12:28 | Outpatient (CLI) | payer MEDICARE, BC, SELFPAY ==
--- NOTE | ~2021-06-26 | XR_ITS ---
EXAMINATION: XR chest 2V DATE: 06/26/2021 12:52 INDICATION: Acute bronchitis, cough TECHNIQUE: PA and lateral views of the chest are obtained. COMPARISON: 04/12/2021 FINDINGS: The lungs are free of acute opacities. There is no pleural effusion or pneumothorax. Cardio megaly is noted. There is mild thoracic spondylosis. There are old right-sided rib fractures. IMPRESSION: 1. Stable cardiomegaly. Reviewed, dictated and finalized at location B. IMPRESSION: 1. Stable cardiomegaly.
== END 2021-06-26 12:29 | disposition home or self-care (01) ==
PROVIDERS: PCP Physician Assistant; Visit Provider Physician Assistant
DX: J20.9 Acute bronchitis, unspecified (principal); I51.7 Cardiomegaly
CPT/HCPCS: 71046